=== PATIENT | male | born 2000 | race Caucasian/White ===

== ENCOUNTER 2025-07-07 06:41 | Emergency (ER) | payer SELFPAY ==
[2025-07-07 06:42] VITALS: BP 148/101; PULSE 119; RESP 18; TEMP 36.8; O2SAT 98; BMI 33.4
--- NOTE | 2025-07-07 06:56 | HMH.EDGENADL ---
Discharge Plan Disposition Patient Disposition: Home, Self-Care Condition: Good Prescriptions Prescriptions: New ondansetron 4 mg tablet,disintegrating 4 mg PO DAILY 5 Days Qty: 15 0RF amoxicillin-pot clavulanate [Augmentin] 500-125 mg tablet 1 tab PO Q8H 5 Days Qty: 15 0RF oxycodone 5 mg tablet 5 mg PO DAILY PRN (Reason: pain) Qty: 12 0RF Referrals Follow up/Referrals: Irving Chow II, MD [Staff Physician, Gastroenterology] - 08/14/25 10:00 am ProviderGurwinder MD [Primary Care Provider, Medical] - See instructions Activity Restrictions/Add. Instructions Additional Instructions/Restrictions: Please call and schedule appointment with gastroenterology. You will likely need a colonoscopy. Please take oxycodone at home as needed for pain. Please take Zofran at home as needed for nausea/vomiting. Please take Augmentin as instructed for 5 days. Return to the ER if symptoms persist or worsen. Clinical Impressions Clinical Impression: Diverticulitis Print Language Print Language: [place] Discharge ED Provider: Bhupinder Patterson JR General Adult HPI General Chief complaint: PAIN Stated complaint: severe abd pain Time Seen by Provider: 07/07/25 06:58 Mode of Arrival: Ambulatory Source of Information: Patient Limitations: No Limitations History of Present Illness HPI narrative: 25-year-old male patient with history of Tourette's syndrome, otherwise unremarkable history, no blood thinners, no allergies, no previous abdominal surgeries, presenting to the Emergency Department for evaluation of 1 week of abdominal pain, originally intermittent, now constant and located to the right lower quadrant. Patient denies fever, chills, chest pain, shortness of breath, vomiting, diarrhea, or constipation. No further complaints at this time. Patient does say walking is painful and driving over here was painful. Last bowel movement this AM. Does not want opioids for pain meds. Onset (ago): week(s) (1) Related Data Previous Rx's ?Medication ?Instructions ?Recorded amoxicillin 500 mg-potassium 1 tab PO Q8H 5 days #15 tabs 07/07/25 clavulanate 125 mg tablet (Augmentin) ondansetron 4 mg disintegrating 4 mg PO DAILY 5 days #15 tabs 07/07/25 tablet oxycodone 5 mg tablet 5 mg PO DAILY PRN pain #12 tabs 07/07/25 Allergies Allergy/AdvReac Type Severity Reaction Status Date / Time No Known Allergies Allergy Verified 07/07/25 06:58 [facility] Disclaimer: The information contained in this section may have been updated after the patient was seen, as this information can be updated by other users. Medical History (Updated 07/07/25 @ 09:04 by Bhupinder Patterson JR, DO) Michael de la Tourette syndrome Hypertension Social History Smoking Status: Current every day smoker alcohol intake: never current occupational status: employed Travel in the last 8 weeks?: Inside the [place] ROS Obtained: Yes All systems reviewed & no additional complaints except as documented and Yes Systems reviewed as appropriate & no additional complaints except as documented Constitutional Constitutional: Reports system reviewed and no additional complaints, except as documented Eyes Eyes: Reports system reviewed and no additional complaints, except as documented ENT Ears, Nose, Mouth, and Throat: Reports system reviewed and no additional complaints, except as documented Cardiovascular Cardiovascular: Reports system reviewed and no additional complaints, except as documented Respiratory Respiratory: Reports system reviewed and no additional complaints, except as documented Gastrointestinal Gastrointestingal: Reports abdominal pain; Denies constipation or diarrhea Genitourinary Male Genitourinary: Reports system reviewed and no additional complaints, except as documented Musculoskeletal Musculoskeletal: Reports system reviewed and no additional complaints, except as documented Integumentary/Breasts Skin/Breast: Reports system reviewed and no additional complaints, except as documented Neurologic Neurologic: Reports system reviewed and no additional complaints, except as documented Physical Exam General General appearance: alert and in no apparent distress Head Head exam: atraumatic and normocephalic Eye Eye exam: Present normal appearance ENT ENT exam: Present normal exam Neck Neck exam: Present normal inspection Chest Chest inspection: Present normal inspection Respiratory Respiratory exam: Present normal lung sounds bilaterally Cardiovascular Cardiovascular exam: Present regular rate Abdominal Exam Abdominal exam: Present tenderness (Tenderness palpation to right lower quadrant) Extremities Exam Extremities exam: Present normal inspection Back Exam Back exam: Present normal inspection Neurological Exam Neurological exam: Present alert Skin Skin exam: Present warm and dry Medical Decision Making Medical Records Screening: Per USPSTF and CDC recommendations, given the prevalence of disease in our region, it is our hospital?s policy to screen for HIV and viral Hepatitis for all patients aged 18 and over and those with ongoing risk factors. Everardo Inquiry Pt receiving controlled substance: No Vital Signs: 07/07/25 06:42 07/07/25 07:30 07/07/25 08:00 Temperature 98.2 F Temperature Source Oral Pulse Rate 89 82 Pulse Rate [Left Radial] 119 H Respiratory Rate 18 16 Blood Pressure 149/89 H 142/91 H Blood Pressure [Right Arm] 148/101 H Blood Pressure Mean 101 106 Blood Pressure Mean [Right Arm] 116 Blood Pressure Source [Right Arm] Automatic Cuff Blood Pressure Position [Right Arm] Supine 02 Sat by Pulse Oximetry 98 96 98 Oxygen Delivery Method Room Air Room Air Lab Data Lab Results 07/07/25 06:55: WBC 16.6 H, RBC 5.49, Hgb 17.0, Hct 48.5, MCV 88.3, MCH 31.0, MCHC 35.1, RDW 13.2, Plt Count 291, MPV 10.4, Neut % (Auto) 72.8, Lymph % (Auto) 15.3, Beadle % (Auto) 9.2, Eos % (Auto) 1.7, Baso % (Auto) 0.4, Neut # (Auto) 12.1 H, Lymph # (Auto) 2.5, Beadle # (Auto) 1.5 H, Eos # (Auto) 0.3, Baso # (Auto) 0.1, Sodium 140, Potassium 4.1, Chloride 98, Carbon Dioxide 26, Anion Gap 20.1 H, BUN 16, Creatinine 1.10, Estimated Creat Clear 144, Estimated GFR 81, Est GFR ( Amer) 98, Glucose 96, Lactate 1.2, Calcium 9.5, Total Bilirubin 0.8, AST 29, ALT 33, Alkaline Phosphatase 80, Total Protein 8.7 H, Albumin 4.7, Globulin 4.0 H, Albumin/Globulin Ratio 1.2, Lipase 40, HCV Ab MOSES w/Rflx PCR Qn Negative, HIV Ag/Ab Combo Qual Negative 07/07/25 08:13: Urine Color Yellow, Urine Appearance Clear, Urine pH 6.5, Ur Specific [employer] <= 1.005, Urine Protein Negative, Urine Glucose (UA) Negative, Urine Ketones Negative, Urine Blood Negative, Urine Nitrate Negative, Urine Bilirubin Negative, Urine Urobilinogen 0.2, Ur Leukocyte Esterase Negative 07/07/25 06:55 07/07/25 06:55 Orders (Tests/Meds): ED MEDICATIONS Generic Name Dose Route Start Last Admin Trade Name Lisha PRN Reason Stop Dose Admin Sodium Chloride 10 ml 07/07/25 07:50 07/07/25 07:51 Sodium Chloride 0.9% 10ml Syr (Rad Only) IV 08/06/25 07:49 10 ml NEEDED PRN Administration Maintain IV Site Discontinued Medications Generic Name Dose Route Start Last Admin Trade Name Lisha PRN Reason Stop Dose Admin Lactated Ringer's 1,000 mls @ 999 mls/hr 07/07/25 06:59 07/07/25 08:17 Lactated Ringer's 1000 Ml Bag IV 07/07/25 07:59 Infused .Q1H1M ONE Infusion Iopamidol 75 ml 07/07/25 07:50 07/07/25 07:51 Iopamidol-370 (76%);100ml Bottle IV 07/07/25 07:51 75 ml ONCE ONE Administration Ketorolac Tromethamine 15 mg 07/07/25 06:59 07/07/25 07:16 Ketorolac 15mg/Ml Vial IV 07/07/25 07:00 15 mg ONCE ONE Administration ORDERS Category Date Time Status CT abdomen pelvis w con Stat Cat Scan 07/07/25 06:59 Completed Complete Blood Count Auto Diff Stat Lab 07/07/25 06:55 Completed Comprehensive Metabolic Panel Stat Lab 07/07/25 06:55 Completed HIV Combo Stat Lab 07/07/25 06:55 Completed Hepatitis C Ab Qual. W/ RFX Stat Lab 07/07/25 06:55 Completed Lactic Acid Stat Lab 07/07/25 06:55 Completed Lipase Stat Lab 07/07/25 06:55 Completed Urinalysis and Microscopic Stat Lab 07/07/25 08:13 Results Medical Decision Narrative: 25-year-old male with unremarkable past medical history presenting with right lower quad abdominal pain. Patient is tender to right lower quadrant exam. We obtain CT imaging to rule out appendicitis. Labs reviewed and independently interpreted, significant for white count of 16 with neutrophil predominance. Anion gap of 20. Giving IV fluids. Lactate within normal limits. Lipase within normal limits. CT abdomen results IMPRESSION: Focal inflammatory process involving the cecum and to a lesser extent the terminal ileum with a normal appendix. Findings could be related to focal colitis, right sided diverticulitis or less likely, typhlitis (immunocompromised patient). Etiology less likely typhlitis as patient is not immunocompromised. Patient is also not neutropenic. Patient reports symptomatic improvements. Etiology likely related to infectious colitis or diverticulitis. With elevated white count and initial pain, we will treat for diverticulitis. No current diarrhea or vomiting. Less likely infectious colitis. We will give Augmentin. Patient is not having diarrhea and has elevated white count therefore believe Augmentin is warranted. Will give Zofran and oxycodone as well as GI follow-up. Clear for discharge this time. Return precaution given. Critical Care Critical Care Time Critical Care Time: No
--- NOTE | 2025-07-07 06:59 | CT_ITS ---
FINAL REPORT TECHNIQUE: Thin section axial images are obtained through the abdomen and pelvis after intravenous contrast. Reconstruction images were obtained from the axial data. Exam was performed using dose reduction techniques. CLINICAL HISTORY: RLQ abd pain COMPARISON: None. FINDINGS: LUNG BASES: Lung bases are clear. Heart size is normal. LIVER: Homogeneous. No focal lesion. GALLBLADDER/BILIARY SYSTEM: Gallbladder is present. No gallstones. No biliary dilatation. SPLEEN: Unremarkable. PANCREAS: Unremarkable. ADRENALS: Unremarkable. KIDNEYS/URETERS/BLADDER: There is a nonobstructing right renal stone. There is no hydronephrosis. Unremarkable urinary bladder. GI TRACT: No small bowel obstruction or dilatation. Normal appendix. There is focal wall thickening involving the cecum and to a lesser extent, the terminal ileum with surrounding inflammation and small adjacent lymph nodes. Favor focal colitis or acute diverticulitis. PELVIC ORGANS: Unremarkable for age. LYMPH NODES/RETROPERITONEUM/MESENTERY: Otherwise, no lymphadenopathy. No abdominal aortic aneurysm. ABDOMINAL WALL: The abdominal wall is intact. FREE FLUID: Small amount of pelvic free fluid. BONES: Deformity of the left ischial tuberosity, favor chronic. No acute osseous abnormality. IMPRESSION: Focal inflammatory process involving the cecum and to a lesser extent the terminal ileum with a normal appendix. Findings could be related to focal colitis, right sided diverticulitis or less likely, typhlitis (immunocompromised patient). Reviewed, Interpreted and Dictated by Rea Wiseman MD Transcribed by Karyn Fletcher Authenticated and [facility]
[2025-07-07] MEDS: LACTATED RINGERS 1000ML 1,000 ML 999 ML IV (07:16)
[2025-07-07] MEDS: KETOROLAC 15MG/ML VIAL 15 MG IV (07:16)
[2025-07-07 07:20] LABS: Hematocrit 48.5 % (42.0-52.0); Hemoglobin 17.0 g/dL (14.1-18.0); Immature Granulocytes % 0.6 %; Mean Corpuscular HGB Conc 35.1 g/dL (31.8-35.4); Mean Corpuscular Hemoglobin 31.0 pg (27.0-31.2); Mean Corpuscular Volume 88.3 fl (80-94); Nucleated Red Blood Cells % 0 %; Platelet Count 291 K/mm3 (142-424); Red Blood Count 5.49 M/mm3 (4.60-6.20); Red Cell Distribution Width-SD 42.5 fL; White Blood Count 16.6 K/mm3 (4.8-10.8)
[2025-07-07 07:30] VITALS: BP 149/89; PULSE 89; O2SAT 96
--- OUTSIDE RECORDS SUMMARY | 2025-07-07 07:30 | XMS_ITS | Encounter Summary ---
Author Organization [facility] Address 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 He was treated with Keflex about one week ago. Mother states is much better. He still has some school anxiety but otherwise he is not showing very much obsessive compulsive problems at all. OBJECTIVE: GENERAL: This is a well-developed, well-nourished male in no acute distress. Patient is alert and active. SKIN: No rashes. HEENT: Nose is clear. Tympanic membranes are benign. Mouth and pharynx are benign. NECK: Supple. HEART: Regular rate without murmur. LUNGS: Clear. ABDOMEN: Benign. ASSESSMENT: PANDAS syndrome improved. PLAN: 1. Finish Keflex and then Pen-Vee K 250 mg/5 mL one teaspoon b.i.d. 2. Return to clinic in one month. /Jae Luna M.D. /liliana documented in this encounter Plan of Treatment Not on file documented as of this encounter Visit Diagnoses Not on filedocumented in this encounter Care Teams Food Specialist Relationship Specialty Start Date End Date Ian Krishnan DO [address] [facility] [place] [address] PCP - General Family Medicine 06/07/21 documented as of this encounter
--- OUTSIDE RECORDS SUMMARY | 2025-07-07 07:30 | XMS_ITS | Encounter Summary ---
Author Organization [facility] Address [address] [place] [address] [place] [address] Care Team Providers Care Slitter Service And Setter Name Role Phone Ian Krishnan DO Primary Care Provi kal Encounter Details Date Type Department Care Team (Late st Contact Info) Description 09/11/2009 Historical Encounter Immediate Care [address] [place] [address] [place], [phone] Ivy oRdney MD [address] [place] [address] Immediate Care [place], [phone] Social History Tobacco Use Types Packs/Day Years Used Date Smoking Tobacco: Never Assessed Sex and Gender Information Value Date Recorded Sex Assigned at Not on file 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 May have had some fever last night. Cough is dry and hacky. No chronic lung problems, asthma, or wheezing. No shortness of breath. Medications are Zyrtec and DayQuil. Allergies none. OBJECTIVE: Temp 98. Weight 134 lbs. Well-developed, well-nourished, white male in no acute distress. Ears -- fluid behind the tympanic membranes. Nose is congested. Pharynx is injected. No exudate. Neck is supple without masses or lymphadenopathy. Full range of motion. Heart regular rate without murmur. Lungs have a few rhonchi in the bases. No rales or wheezes. No respiratory distress. DIAGNOSIS: 1. Bronchitis. 2. URI. TREATMENT: Biaxin 500 mg b.i.d. for 10 days with food. Nasacort AQ 2 puffs once a day in each nostril. Followup p.r.n. Ivy Rodney MD TR: LCB/MS Conf #: [id number] Dictation ID: [id number] cc: (Signed in IC-Chart by Ivy Rodney MD on 2009-09-11 13:25:08) documented in this encounter Plan of Treatment Not on file documented as of this encounter Visit Diagnoses Not on filedocumented in this encounter Care Teams Slitter Service And Setter Relationship Specialty Start Date End Date Ian Krishnan DO [address] [facility] [place] [address] PCP - General Family Medicine 06/07/21 documented as of this encounter
--- OUTSIDE RECORDS SUMMARY | 2025-07-07 07:30 | XMS_ITS | Encounter Summary ---
Author Organization [facility] Address 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 SUBJECTIVE: Art comes in for a [age] year old checkup. He is doing well with good activity and appetite. In fact mom states his only pleasure in life is eating. Developmentally he is normal, unfortunately he continues to have problems with obsessive compulsive disorder. He has been seen here before and felt to probably have PANDAS. He was seen last on 12/05/03. He had an exacerbation of his obsessive compulsive disorder tendencies by a strep infection that responded beautifully to Keflex but mom says he has continued to have significant obsessive compulsive disorder symptoms. OBJECTIVE: VITAL SIGNS: Wt. is 66 lbs; HT: 3'10; BP is 92/60 GENERAL: This is a well-developed, well-nourished male in no acute distress. Patient is alert and active. SKIN: No significant rashes. HEENT: Pupils are equal, round and reactive to light. Tympanic membranes are benign. Nose is clear. Mouth and pharynx are benign. NECK: Supple. HEART: Regular rate without murmur. Pulses are equal. LUNGS: Clear. ABDOMEN: Soft, without hepatosplenomegaly, masses or tenderness. : Not examined. EXTREMITIES: No clubbing, cyanosis, or edema. NEUROLOGICAL: No focal deficits are noted. ASSESSMENT: 1. [age] year old with normal growth, development and physical examination. 2. Significant obsessive compulsive disorder. PLAN: 1. Will once again ask Dr. Bedolla to see since this was requested before by me but mom felt that it was unnecessary after the response to Keflex. 2. Return to clinic p.rsabina. /Jae Luna M.D. /liliana documented in this encounter Plan of Treatment Not on file documented as of this encounter Visit Diagnoses Not on filedocumented in this encounter Care Teams Butcher Or Smallgoods Maker Relationship Specialty Start Date End Date Ian Krishnan DO [address] [facility] [place], [phone] PCP - General Family Medicine 06/07/21 documented as of this encounter
--- OUTSIDE RECORDS SUMMARY | 2025-07-07 07:30 | XMS_ITS | Encounter Summary ---
Author Organization [facility] Address 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 SUBJECTIVE: Art comes in at [age] years of age with his mother with an extremely interesting history. He developed sore throat three weeks ago right after a sibling had been cultured positive for strep. He was seen at [facility]. No culture was done. He was presumed to have strep because of his siblings positive throat culture. He was initially treated with Amoxicillin but was not better in three days and returned and received an injection of Bicillin. Mother states that after a few days he was fine but about two weeks ago she noticed he began to have severe anxiety, won't play with others, has a lot of trouble being out of the mother's sight. He is not eating. He is afraid of the dark now, afraid of his hands being dirty, has numerous obsessive compulsive traits. OBJECTIVE: VITAL SIGNS: WT. is 44 GENERAL: This is a well-developed, well-nourished male in no acute distress. Patient is alert and active. SKIN: No rashes. HEENT: Nose is clear. Tympanic membranes are benign. Mouth and pharynx are benign. NECK: Supple. HEART: Regular rate without murmur. LUNGS: Clear. ABDOMEN: Benign. ASSESSMENT: PANDAS Syndrome. PLAN: 1. Quick Strep is negative. 2. Keflex 500 mg b.i.d. 3. Will talk with the psychiatrist about starting Prozac but none are available today because it being weekend. 4. Will also talk to infectious disease about prophylactic antibiotics. 5. He is to return to clinic in six days for a follow up. /Jae Luna M.D. /liliana documented in this encounter Plan of Treatment Not on file documented as of this encounter Visit Diagnoses Not on filedocumented in this encounter Care Teams Cable Splicer Relationship Specialty Start Date End Date Ian Krishnan DO [address] [facility] [address] PCP - General Family Medicine 06/07/21 documented as of this encounter
--- OUTSIDE RECORDS SUMMARY | 2025-07-07 07:30 | XMS_ITS | Encounter Summary ---
Author Organization [facility] Address 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
--- OUTSIDE RECORDS SUMMARY | 2025-07-07 07:30 | XMS_ITS | Encounter Summary ---
Author Organization [facility] Address [address] [place] [address] Care Team Providers Care Leather Sprayer Name Role Phone Ian Krishnan DO Primary Care Provi kal Encounter Details Date Type Department Care Team (Late st Contact Info) Description 09/28/2010 Historical Encounter HISTORICAL Provider, MD Indra 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
--- OUTSIDE RECORDS SUMMARY | 2025-07-07 07:30 | XMS_ITS | Encounter Summary ---
Author Organization [facility] Address 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 Mother is concerned because the child has been experiencing a good bit of weight gain. She is concerned that he is overweight for his age and just wants a good physical so that she can be sure that there is nothing physically that is causing him to retain this weight. We did talk about this at length. She is an RN and she is aware of normal childhood development and growth spurts. She wants to enroll him in physical exercise program and just wants to be sure that he is well before she does that. PAST MEDICAL HISTORY: The patient has no known health problems. ALLERGIES: No known drug allergies. MEDICATIONS: Not currently taking medications. PAST SURGICAL HISTORY: No previous surgery history. He was born full term at 7 lbs., 6 oz. OBJECTIVE: GENERAL: Alert, cooperative, 6-year-old male. VITALS: Weight 97 lbs., 4 oz. Temperature 98.6. Pulse is 92. ENT: TMs clear and intact. Nares patent. Pharynx negative. Mucous membranes moist. NECK: Supple. No rigidity, masses or thyroid enlargement. CV: Heart rate and rhythm regular. RESP: Clear bilaterally. No wheezes. Respirations easy. GI: Abdomen soft, nontender, nondistended. No masses or organomegaly. Bowel sounds active in all four quadrants. MS: Full ROM of extremities. Muscle strength equal. No pedal edema. SKIN: Warm and dry. No rashes or cyanosis. DIAGNOSTICS: CBC is essentially within normal limits. CMP and TSH sent to reference lab for evaluation as well. ASSESSMENT: 1. Weight gain. PLAN: Discussed with patient's mother on ways to increase activity and making smart food choices more than dieting and I believe it may be franz to go ahead and enter him in an exercise type activity. They will follow back up with me here within the next week after we have obtained these other lab studies and make any changes based on that. Patient's mother verbalized understanding. Dejah Smith NP TR: FRANCISCO JAVIER Conf #: [id number] Dictation ID: [id number] cc: (Signed in IC-Chart by LEONCIO Adams on 2007-03-01 08:17:54) documented in this encounter Plan of Treatment Not on file documented as of this encounter Visit Diagnoses Not on filedocumented in this encounter Care Teams Manager Talent Relationship Specialty Start Date End Date Ian Krishnan DO [address] [facility] Family [facility] [place], [phone] PCP - General Family Medicine 06/07/21 documented as of this encounter
--- OUTSIDE RECORDS SUMMARY | 2025-07-07 07:30 | XMS_ITS | Encounter Summary ---
Author Organization [facility] Address 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 It shows that Dr. Luna saw him in 2003 with a diagnosis of PANDAS and then worsening of his OCD and anxiety later in 2004. Mom says she really thought that they could deal with it themselves and he seemed to do better initially although he did have exacerbations with sore throats. However, now he just seems to have anxiety and obsessive compulsive symptoms at baseline. Apparently his school performance is suffering. He is at [employer] and is in fifth grade. He previously was an A/B student and now is a D student. Mom says he just cannot complete his work because he is so fixated on his compulsive symptoms and obsessive symptoms. He lifts his eyebrows. He blinks his eyes. Mom says his mouth jerks. He does make some grunting noises from time to time. He turns his head and grabs his stomach. Art says that it does bother him also and he is unable to concentrate although the friends at school do not seem to be bothering him about it. He had been offered a referral to Dr. Lolis Bedolla but the family had declined that and now mom would like some help with this. He continues to sleep well at nighttime but his activities have suffered. He quit basketball and has quit baseball also and mom is worried about him. He seems to be depressed a lot. Mom was adopted and does not know much about her family medical history but paternal grandmother does have a history of depression. She really doesn't complain of any hyperactive symptoms but he certainly does have difficulty concentrating and finishing his work and he worries constantly mom says of someone breaking into their house and killing them all. He is not on any medicines currently. No known drug allergies. He has had no problems with enuresis or encopresis. Still eats fairly well. No fevers presently or persistent upper respiratory infection symptoms or cough. PHYSICAL EXAM: Weight 128 pounds. Height is 5 feet 1/2 inches. BMI 97th percentile. Blood pressure 108/76. General: He is well-developed, overweight male in no acute distress. He is awake, alert, and appropriate although with mildly flat affect. Intermittently, his eyebrows do raise in unison. His eyes may dart to the side. No nystagmus type movements. Shrugs his shoulder from time to time. Mom says he is trying to hold in his tics. HEENT: Normocephalic, atraumatic. Eyes are clear. Pupils are equal, round and reactive to light. Extraocular movements are intact. TM's are within normal limits. No nasal discharge. Oropharynx is benign with moist mucous membranes. Neck: Shotty cervical lymphadenopathy that is freely movable bilaterally. CV: Normal sinus rhythm without murmur. Good bilateral pulses and peripheral perfusion. Lungs: Clear to auscultation bilaterally with good air movement. No increased work of breathing. cteric. Abdomen: Soft and nontender, nondistended. There is no hepatosplenomegaly or masses. Skin: Clear with no rashes. Neuro: Cranial nerves II-XII intact. IMPRESSION: 1. Tic disorder. 2. History of PANDAS. PLAN: 1. I certainly agree that he needs a referral to pediatric psychiatry. Mom would like to try someone besides Dr. Bedolla at this point so we did discuss Inocencio Draper and she says that she wants to call around and find someone who will take their insurance. We offered to do that for her but she will call us when she needs a referral. She even mentioned going to [place] [facility]. We will be glad to help in any way that we can. Roxane Padilla MD TR: ARCHANA Conf #: [id number] Dictation ID: [id number] cc: (Signed in IC-Chart by Roxane Padilla MD on 2010-10-01 12:01:55) documented in this encounter Plan of Treatment Not on file documented as of this encounter Visit Diagnoses Not on filedocumented in this encounter Care Teams Clinical Recruiter Relationship Specialty Start Date End Date Ian Krishnan DO [facility] [place] [address] PCP - General Family Medicine 06/07/21 documented as of this encounter
--- OUTSIDE RECORDS SUMMARY | 2025-07-07 07:30 | XMS_ITS | Encounter Summary ---
Author Organization [facility] Address 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 Keflex was started six days ago and mother states he got much better and did not need an appointment with Dr. Bedolla for his significant obsessive compulsive disorder. The mother states minimal separation anxiety but is really doing extremely. She is not only pleased but very amazed. OBJECTIVE: GENERAL: This is a well-developed, well-nourished female in no acute distress. Patient is alert and active. SKIN: No rashes. HEENT: Tonsils are still 2+ and slightly red. Nose is clear. Tympanic membranes are benign. Mouth and pharynx are benign. NECK: Supple. HEART: Regular rate without murmur. LUNGS: Clear. ABDOMEN: Benign. ASSESSMENT: 1. Strep tonsillitis. 2. PANDAS. PLAN: 1. Finish Keflex 10 day course. 2. Penicillin V 250 mg/5 mL one teaspoon p.o. b.i.d. for one month for prophylaxis for Group A beta hemolytic strep. Return to clinic in one month or sooner p.r.n. recurrence of obsessive compulsive disorder symptoms. /Jae Luna M.D. /liliana documented in this encounter Plan of Treatment Not on file documented as of this encounter Visit Diagnoses Not on filedocumented in this encounter Care Teams Industrial Maintenance Millwright Relationship Specialty Start Date End Date Ian Krishnan DO [address] [facility] [place] [address] PCP - General Family Medicine 06/07/21 documented as of this encounter
--- OUTSIDE RECORDS SUMMARY | 2025-07-07 07:30 | XMS_ITS | Encounter Summary ---
Author Organization [facility] Address 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
--- OUTSIDE RECORDS SUMMARY | 2025-07-07 07:30 | XMS_ITS | Encounter Summary ---
Author Organization [facility] Address 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
--- OUTSIDE RECORDS SUMMARY | 2025-07-07 07:30 | XMS_ITS | Clinical Summary ---
Author Organization [facility] Address [address] [place] [address] Care Team Providers Care Head Start Director Name Role Phone No, Primary Doctor Primary Care Provider Unavail able Social History Tobacco Use Types Packs/Day Years Used Date Smoking Tobacco: Never Smokeless Tobacco: Never Tobacco Cessation:Counseling Given: Not Answered Sex and Gender Information Value Date Recorded Sex Assigned at Not on file Legal Sex Male 8:10 AM CDT Gender Identity Not on file Sexual Orientation Not on file Last Filed Vital Signs Vital Sign Reading Time Taken Comments Blood Pressure 126/74 11/28/2023 8:46 AM CDT Pulse 85 11/28/2023 8:46 AM CDT Temperature 37.1 C (98.7 F) 11/28/2023 8:46 AM CDT Respiratory Rate 18 11/28/2023 8:46 AM CDT Oxygen Saturation 98% 11/28/2023 8:46 AM CDT Inhaled Oxygen Concentration - - Weight 95.3 kg (210 lb) 11/28/2023 8:46 AM CDT Height 172.7 cm (5' 8 ) 11/28/2023 8:46 AM CDT Body Mass Index 31.93 11/28/2023 8:46 AM CDT Plan of Treatment Health Maintenance Due Date Last Done Comments HIV Screening 2014 HPV Vaccines (1 - Male 3-dose series) 2014 COVID-19 Vaccine ( season) 2025 Influenza Vaccine (#1) 2025 , 05/27/2018, 05/10/2014, Additional history exists TETANUS VACCINE 12/07/2029 12/08/2019 RSV Vaccine (Age 50+ and patients) (1 - 1-dose 75+ series) 2074 Hepatitis C Screening Completed 07/19/2021 Lipid Panel Completed 09/19/2022 Pneumococcal Vaccines (Age 0-49) Aged Out No longer eligible based on patient's age to complete this topic Care Teams Head Start Director Relationship Specialty Start Date End Date No, Primary Doctor PCP - General 11/28/23
--- OUTSIDE RECORDS SUMMARY | 2025-07-07 07:31 | XMS_ITS | Encounter Summary ---
Author Organization [facility] Address [address] [place] [address] Care Team Providers Care Supply Chain Development Manager Name Role Phone Ian Krishnan DO Primary Care Provi kal Encounter Details Date Type Department Care Team (Latest Contact Info) Description 01/06/2014 Scanned Document EXTERNAL Scan, Clinical [address] [facility] [place] [address] Social History Tobacco Use Types Packs/Day Years Used Date Smoking Tobacco: Never Smokeless Tobacco: Never Alcohol Use Standard Drinks/Week Comments No 0 (1 standard drink = 0.6 oz pur e alcohol) Sex and Gender Information Value Date Recorded Sex Assigned at Not on file 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
--- OUTSIDE RECORDS SUMMARY | 2025-07-07 07:31 | XMS_ITS | Encounter Summary ---
Author Organization [facility] Address [address] [place], [address] Care Team Providers Care Poultice Machine Operator Name Role Phone Ian Krishnan DO Primary Care Provi kal Encounter Details Date Type Department Care Team (Late st Contact Info) Description 05/08/2003 Historical Encounter Pediatric Clinic [address] [place] [address], [phone] Elvi Yi MD [address] [place] [address] Pediatric [facility], [address] Social History Tobacco Use Types Packs/Day Years Used Date Smoking Tobacco: Never Assessed Sex and Gender Information Value Date Recorded Sex Assigned at Not on file Legal Sex Male 6:[address] OPERATIONS CLERK Gender Identity Not on file Sexual Orientation Not on file documented as of this encounter Miscellaneous Notes * Office Visit - Elvi Yi MD - 05/08/2003 1:06 PM CDT CONTINUATION RECORD 05/05/2003 [place] [id number] Elvi Yi M.D. SUBJECTIVE: Art is a 3-year-old who presents for the first time to the Pediatric Clinic for a checkup. They saw Dr. Garay a few weeks ago for allergy problems. He put him on some Zyrtec and Nasonex and Mom thinks that is helping a little bit with the allergy symptoms. He does have large tonsils and adenoids but Dr. Garay thinks they are within normal limits for his age. He walks and runs, is well-coordinated. Knows his letters and numbers. His development is quite good. He eats a good diet. Drinks plenty of milk. Mom has no other concerns or complaints. PAST MEDICAL HISTORY: He was a 7 lb., 6 oz. product of a term delivery at [facility]. OBJECTIVE: VITAL SIGNS: Wt. is 49 lbs; HT: 42 inches; blood pressure 92/70. GENERAL: This is a well-developed, well-nourished male in no acute distress. SKIN: No rashes. HEENT: Pupils are equal, round and reactive to light. Tympanic membranes are quiroz and shiny. Nares are clear. Oropharynx is pink and moist. NECK: Supple with full range of motion. HEART: Regular rate and rhythm with no murmur, gallop or rub. LUNGS: Clear to auscultation bilaterally. ABDOMEN: Soft, non-tender, non-distended, with no hepatosplenomegaly. : Normal male. Testes descended bilaterally. EXTREMITIES: No clubbing, cyanosis, or edema. NEUROLOGICAL: No focal deficits are noted. SPINE: Straight. ASSESSMENT: 1. Well child with normal growth and development 2. Allergic rhinitis PLAN: 1. Continue the Zyrtec and Nasonex. 2. Since he has quite a bit of trouble with allergies I did recommend that he get a flu shot next month. 3. Recheck yearly or sooner as needed. /Elvi Yi M.D. /chaparrita documented in this encounter Plan of Treatment Not on file documented as of this encounter Visit Diagnoses Not on filedocumented in this encounter Care Teams Poultice Machine Operator Relationship Specialty Start Date End Date Ian Krishnan DO [facility] [place] [address] PCP - General Family Medicine 06/07/21 documented as of this encounter
--- OUTSIDE RECORDS SUMMARY | 2025-07-07 07:31 | XMS_ITS | Encounter Summary ---
Author Organization [facility] Address [address] [place] [address] Care Team Providers Care Coin Counter And Wrapper Name Role Phone Ian Krishnan DO Primary Care Provi kal Encounter Details Date Type Department Care Team (Latest Contact Info) Description 08/25/2014 Scanned Document EXTERNAL Scan, Clinical [address] [facility] [place] [address] Social History Tobacco Use Types Packs/Day Years Used Date Smoking Tobacco: Never Smokeless Tobacco: Never Alcohol Use Standard Drinks/Week Comments No 0 (1 standard drink = 0.6 oz pur e alcohol) Sex and Gender Information Value Date Recorded Sex Assigned at Not on file 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
--- OUTSIDE RECORDS SUMMARY | 2025-07-07 07:31 | XMS_ITS | Encounter Summary ---
Author Organization [facility] Address [address] [place] [address] Care Team Providers Care Occupational Health Physician Name Role Phone Ian Krishnan DO Primary Care Provi kal Encounter Details Date Type Department Care Team (Latest Contact Info) Description 09/17/2015 Scanned Document EXTERNAL Scan, Clinical [address] [facility] [place] [address] Social History Tobacco Use Types Packs/Day Years Used Date Smoking Tobacco: Never Smokeless Tobacco: Never Alcohol Use Standard Drinks/Week Comments No 0 (1 standard drink = 0.6 oz pur e alcohol) Sex and Gender Information Value Date Recorded Sex Assigned at Not on file 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
--- OUTSIDE RECORDS SUMMARY | 2025-07-07 07:31 | XMS_ITS | Encounter Summary ---
Author Organization [facility] Address [address] [place] [address] [place], [address] Care Team Providers Care Slitter Creaser Slotter Operator Name Role Phone Ian Krishnan DO Primary Care Provi kal Encounter Details Date Type Department Care Team (Late st Contact Info) Description 10/26/2023 Telephone Psychiatry - [place] 1 [facility] [address] [place] [address] Gabi Moore, PMHNP 1 [facility] [address] [facility] [address] Social History Tobacco Use Types Packs/Day Years Used Date Smoking Tobacco: Every Day Cigarettes 0.3 5 Smokeless Tobacco: Former Snuff Alcohol Use Standard Drinks/Week Comments Yes 0 (1 standard drink = 0.6 oz pur e alcohol) occasionally PHQ-2 Answer Date Recorded PHQ-2 Total Score 0 01/13/2021 Sex and Gender Information Value Date Recorded Sex Assigned at Not on file 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 Answer Date of Assessment Author No 05/13/2016 1:43 PM CDT Me jero Thomas, JANE * *Walks in Home Answer Date of Assessment Author No 05/13/2016 1:43 PM CDT Me jero Thomas RN * *Bathing Answer Date of Assessment Author No 05/13/2016 1:43 PM CDT Me jero Thomas, JANE * *Due to conditions difficulty w/ independent errands,shopping? Answer Date of Assessment Author No 05/13/2016 1:43 PM CDT Me jero Thomas RN documented as of this encounter Mental Status * *Due to conditions have difficulty w/decisions Answer Entry Date Author No 05/13/2016 1:43 PM CDT documented in this encounter Miscellaneous Notes * Telephone Encounter - Gabi Moore PMHNP - 10/26/2023 2:13 PM CDT Requested Prescriptions Signed Prescriptions Disp Refills ARIPiprazole (ABILIFY) 5 MG tablet 30 tablet 2 Sig: Take 1 tablet (5 mg total) by mouth daily. Authorizing Provider: GABI MOORE fluvoxaMINE (LUVOX) 100 MG tablet 60 tablet 2 Sig: Take 1 tablet (100 mg total) by mouth 2 (two) times daily. Authorizing Provider: GABI MOORE busPIRone (BUSPAR) 15 MG tablet 60 tablet 2 Sig: Take 1 tablet (15 mg total) by mouth 2 (two) times daily. Authorizing Provider: GABI MOORE Viloxazine HCl ER 200 MG CP24 60 capsule 2 Sig: Take 2 capsules by mouth daily. Authorizing Provider: GABI MOORE * Telephone Encounter - Adrienne Savage - 10/26/2023 2:06 PM CDT Patient called regarding his appointment he missed this morning, stated he had a family emergency. He rescheduled the appointment for 11/28/23 at 4:00, wanted to know if he can get his medication refilled to [facility] on [address] documented in this encounter Plan of Treatment Not on file documented as of this encounter Visit Diagnoses Not on filedocumented in this encounter Care Teams Slitter Creaser Slotter Operator Relationship Specialty Start Date End Date Ian Krishnan DO [address] [facility] [place] [address] PCP - General Family Medicine 06/07/21 documented as of this encounter
--- OUTSIDE RECORDS SUMMARY | 2025-07-07 07:31 | XMS_ITS | Encounter Summary ---
Author Organization [facility] Address [address] [place], [address] Care Team Providers Care Hydraulic Design Engineer Name Role Phone Ian Krishnan DO Primary Care Provi kal Reason for Referral * Diagnostic Procedure (Routine) - Closed Specialty Diagnoses / Procedures Referred By Luis ross Referred To Contact Diagnoses Obsessive-compulsive disorders Procedures EKG 12 lead Arnold Lozoya MD [address] [facility] [address] Phone: tel: fax: Referral ID Status Reason Start Date Expiration Date Visits Re quested Visits Authorized [id number] Closed 10/10/2014 04/08/2015 1 1 [employer] Encounter Details Date Type Department Care Team (Late st Contact Info) Description 10/10/2014 Orders Only [facility] EKG [address] [place], [address] Arnold Lozoya MD [address] [facility] [place], [address] Obsessive-compulsive disorders (Primary Dx) Social History Tobacco Use Types Packs/Day Years Used Date Smoking Tobacco: Never Smokeless Tobacco: Never Alcohol Use Standard Drinks/Week Comments No 0 (1 standard drink = 0.6 oz pur e alcohol) Sex and Gender Information Value Date Recorded Sex Assigned at Not on file 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 Gender Identity Not on file Sexual Orientation Not on file documented as of this encounter Plan of Treatment Not on file documented as of this encounter Results * EKG 12 lead (10/10/2014 7:51 AM MANAGER MARKET) Other (qualifier value) 10/10/2014 7:51 AM MANAGER MARKET Arnold Lozoya MD ECG ORDERABLES Final Result documented in this encounter Visit Diagnoses Diagnosis Obsessive-compulsive disorders- Primary documented in this encounter Care Teams Hydraulic Design Engineer Relationship Specialty Start Date End Date Ian Krishnan DO [address] [place] [address] [place] [address] PCP - General Family Medicine 06/07/21 documented as of this encounter
--- OUTSIDE RECORDS SUMMARY | 2025-07-07 07:31 | XMS_ITS | Encounter Summary ---
Author Organization [facility] Address 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 CHIEF COMPLAINT: Allergies and obstructive snoring and hoarseness. HISTORY OF PRESENT ILLNESS: The patient comes to the office with allergies, obstructive snoring, frequent hoarseness in the morning, dark circles under the eyes, constant throat clearing, sniffs a lot, the patient has huge tonsils but without evidence of significant tonsillitis. He has been off and on different antihistamines, presently taking Claritin. The family wants my opinion regarding treatment options available. PAST MEDICAL HISTORY: As above. MEDICATIONS: Claritin. ALLERGIES: None. SOCIAL HISTORY: No one smokes in the home. He is in preschool. SURGICAL HISTORY: None. FAMILY HISTORY: Noncontributory. ENVIRONMENTAL EXPOSURES: No pets, no second hand smoke. REVIEW OF SYSTEMS: General: Problematic snoring as noted above. Eyes: Doesn't wear glasses, denies burning or itching. Nose: As above. Throat: As above. CV/Pul: No asthma or hypertension. GI: No reflux or hiatal hernia. : No bladder disorders or kidney disease. Neuro: No seizures or strokes, no dizziness or chronic headaches. Misc: No bleeding disorders, low blood count, no thyroid disease. PHYSICAL EXAMINATION: VS: Weight is 48 lbs. Pulse is 104. Respirations 36. Head: Atraumatic, normocephalic. The facial functions appear intact. Hearing seems to be normal in the office today. Ears: The TMs and middle ear cleft are clear, dry, and noninfected. Nose/Intranasal Vault: Hypertrophic inferior turbinates, dark circles under the eyes. Midline septum. No pus or polyps seen in the middle meatus. Oral Cavity/Oropharynx: Shows no disease in the floor of the mouth, base of the tongue, pharynx, nasopharynx, lips or dental areas. Tonsils are 3-4+ . Indirect exam: Deferred. Neck: Shows no evidence of mass or adenopathy, thyroid and salivary tissues do not appear enlarged. Neuro: Cranial nerves II-XII are intact. Lateral x-ray was performed, which shows moderate adenoidal hypertrophy. IMPRESSION: 1. Moderate adenotonsillar hypertrophy. The patient has obstructive complaints but the tonsils and adenoids at this time are not obviously obstructive. 2. He has got what appears to be some fairly significant allergies and is probably owing to the nasal airway obstruction and the forced mouth breathing. RECOMMENDATIONS: 1. Zyrtec and Nasonex. 2. Comprehensive allergy tests plus IgE. 3. Will call with the results and go from there. Gera Garay M.D. /naima documented in this encounter Plan of Treatment Not on file documented as of this encounter Visit Diagnoses Not on filedocumented in this encounter Care Teams Assistant Relationship Specialty Start Date End Date Ian Krishnan DO [address] [facility] [place] [address] PCP - General Family Medicine 06/07/21 documented as of this encounter
--- OUTSIDE RECORDS SUMMARY | 2025-07-07 07:31 | XMS_ITS | Encounter Summary ---
Author Organization [facility] Address 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 Gera Garay M.D./ Gera Garay MD documented in this encounter Plan of Treatment Not on file documented as of this encounter Visit Diagnoses Not on filedocumented in this encounter Care Teams Supervisor Painting Relationship Specialty Start Date End Date Ian Krishnan DO [address] [facility] [place] [address] PCP - General Family Medicine 06/07/21 documented as of this encounter
--- OUTSIDE RECORDS SUMMARY | 2025-07-07 07:31 | XMS_ITS | Clinical Summary ---
Author Organization [facility] Address [address] [place] [address] Care Team Providers Care Open Shank Coverer Name Role Phone Ian Krishnan DO Primary Care Provi kal Allergies Active Allergy Reactions Criticality Noted Date Comments Poison Jaclyn Extract Unknown 05/30/2023 Medications * This document contains information received from the source organization and may not represent a complete record from that organization. hydrOXYzine HCl (ATARAX) 10 MG tabletIndicatio ns:Generalized anxiety disorder TAKE 1 TABLET (10 MG TOTAL) BY MOUTH NIGHTLY NEEDED FOR ANXIETY (INSOMNIA). 30 tablet 10/30/2023 Active lisinopril (PRINIVIL,ZESTR IL) 20 MG tabletIndicatio ns:Hypertension , essential TAKE 1 TABLET BY MOUTH EVERY DAY 30 tablet 5 08/29/2024 Active busPIRone (BUSPAR) 15 MG tablet TAKE 1 TABLET BY MOUTH 2 TIMES DAILY. 60 tablet 01/30/2025 Active fluvoxaMINE (LUVOX) 100 MG tablet TAKE 1.5 TABLETS BY MOUTH 2 TIMES DAILY. 270 tablet 1 04/21/2025 Active ARIPiprazole (ABILIFY) 5 MG tablet TAKE 1 TABLET (5 MG TOTAL) BY MOUTH DAILY. 90 tablet 1 04/21/2025 Active Active Problems Problem Noted Date Diagnosed Date Hypertension, essential 07/19/2021 Tourette's 11/18/2015 Attention deficit hyperactiv ity disorder (ADHD), combined type 11/05/2015 Generalized anxiety disorder 11/05/2015 OCD (obsessive compulsive disorder) 06/19/2014 Resolved Problems Problem Noted Date Diagnosed Date Resolved Date DMDD (disruptive mood dysregulation disorder) 05/16/20 16 07/26/2022 Oppositional defiant disorder 11/05/2015 06/07/2021 Encounters Date Type Department Care Team Description 04/20/2025 Refill Psychiatry [facility] [address] [facility] [address] [facility] [address] Theresa Moore, PMHNP Med Change Request 04/19/2025 Refill Psychiatry [facility] [address] [facility] [address] [place] [phone] Theresa Moore, PMHNP Med Change Request from Last 3 Months Immunizations Immunization Administration Dates Next Due FLULAVAL QUADRIVALENT, 3 YEARS AND ABOVE, IM INFLUENZA QUADRIVALENT, PF 3 YEARS AND ABOVE ,05/10/2014 Influenza Split 05/31/2005 Influenza, split virus,triva lent, PF, 6 months of age and above, for IM use 05/10/2013 Td 12/08/2019 Family History Medical History Relation Comments Hypertension Father No Known Problems Mother Anxiety disorder Paternal Grandmother Hypertension Paternal Grandmother ADHD Paternal Uncle Relation Status Comments Father Mother Paternal Grandmother Paternal Uncle Social History Tobacco Use Types Packs/Day Years Used Date Smoking Tobacco: Every Day Cigarettes 0.3 5 Smokeless Tobacco: Former Snuff Tobacco Cessation:Ready to Q uit: Not Asked; Counseling Given: Not Answered Alcohol Use Standard Drinks/Week Comments Yes 0 (1 standard drink = 0.6 oz pur e alcohol) occasionally PHQ-2 Answer Date Recorded PHQ-2 Total Score 0 01/13/2021 Sex and Gender Information Value Date Recorded Sex Assigned at Not on file 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 Gender Identity Not on file Sexual Orientation Not on file 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 Not on file Not on file Not on file Last Filed Vital Signs Vital Sign Reading Time Taken Comments Blood Pressure 142/92 02/27/2024 3:00 PM CDT Pulse 103 02/27/2024 3:00 PM CDT Temperature 36.9 C (98.4 F) 03/08/2021 10:22 AM CDT Respiratory Rate 16 01/17/2022 8:05 AM CDT Oxygen Saturation 95% 12/09/2019 8:07 AM CDT Inhaled Oxygen Concentration - - Weight 89.4 kg (197 lb) 02/27/2024 3:00 PM CDT Height 172.7 cm (5' 8 ) 12/27/2023 2:01 PM CDT Body Mass Index 29.95 12/27/2023 2:01 PM CDT Plan of Treatment Health Maintenance Due Date Last Done Comments Pneumococcal Vaccine (1 of 2 - PCV) 2018 INFLUENZA VACCINE 03/07/2025 07/15/2022, (Declined), 05/30/2020, Additional history exists ADULT TETANUS VACCINE (1) 12/07/2029 12/08/2019 Meningococcal ACWY Aged Out No longer eligible based on patient's age to complete this topic Meningococcal B Aged Out No longer el igible based on patient's age to complete this topic Insurance [facility] [employer] Care Teams Open Shank Coverer Relationship Specialty Start Date End Date Ian Krishnan DO [facility] [place] [address] PCP - General Family Medicine 06/07/21
--- OUTSIDE RECORDS SUMMARY | 2025-07-07 07:31 | XMS_ITS | Encounter Summary ---
Author Organization [facility] Address 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 SUBJECTIVE: 1-year-old white male with a sore throat. He has had a little stomachache as well. No cough or congestion. He has been on Triaminic already. OBJECTIVE: Vitals are normal. Does have some exudate on the right tonsil. Neck is supple. No adenopathy. Lungs are clear. Abdomen is soft. Lab: Strep is negative. ASSESSMENT: 1. Pharyngitis. PLAN: 1. Give Augmentin 600/5, 1 teaspoon b.i.d. 2. Fluids, Tylenol and rest. Arian Peters M.D. /[facility] documented in this encounter Plan of Treatment Not on file documented as of this encounter Visit Diagnoses Not on filedocumented in this encounter Care Teams Ply Bander Relationship Specialty Start Date End Date Ian Krishnan DO [facility] [place] [address] PCP - General Family Medicine 06/07/21 documented as of this encounter
--- OUTSIDE RECORDS SUMMARY | 2025-07-07 07:31 | XMS_ITS | Encounter Summary ---
Author Organization [facility] Address [address] [place] [address] Care Team Providers Care Geriatric Social Worker Name Role Phone Ian Krishnan DO Primary Care Provi kal Encounter Details Date Type Department Care Team (Latest Contact Info) Description 10/10/2014 Scanned Document EXTERNAL Scan, Clinical [address] [facility] [place] [address] Social History Tobacco Use Types Packs/Day Years Used Date Smoking Tobacco: Never Smokeless Tobacco: Never Alcohol Use Standard Drinks/Week Comments No 0 (1 standard drink = 0.6 oz pur e alcohol) Sex and Gender Information Value Date Recorded Sex Assigned at Not on file Legal Sex Male 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
[2025-07-07 07:33] LABS: Albumin Level 4.7 g/dl (3.5-5.0); Chloride 98 mmol/L (98-107); Potassium 4.1 mmoL/L (3.5-5.1); Sodium 140 mmol/L (136-145)
[2025-07-07 07:35] LABS: Alanine Aminotransferase 33 U/L (12-78); Albumin/Globulin Ratio 1.2 (1.1-1.8); Alkaline Phosphatase 80 U/L (38-126); Anion Gap 20.1 mEq/L (5-15); Aspartate Amino Transferase 29 U/L (17-59); Bilirubin,Total 0.8 mg/dl (0.2-1.3); Blood Urea Nitrogen 16 mg/dl (9-20); Carbon Dioxide 26 mmol/L (22.0-30.0); Creatinine Clearance Estimated 144 mL/min (50-200); Creatinine,Serum 1.10 mg/dl (0.66-1.25); Estimated Glomerular Filt Rate 81 ml/min (>60); GFR (African American) 98 ML/MIN (>60); Globulin 4.0 g/dL (1.3-3.2); Total Protein,Serum 8.7 g/dl (6.3-8.2)
[2025-07-07 07:36] LABS: Calcium 9.5 mg/dl (8.4-10.2); Glucose 96 mg/dl (74-100); Lipase 40 U/L (23-300)
[2025-07-07] MEDS: SODIUM CHLORIDE 0.9% 10ML SYR (RAD ONLY) 10 ML IV (07:51)
[2025-07-07] MEDS: IOPAMIDOL-370 (76%);100ML BOTTLE 75 ML IV (07:51)
[2025-07-07 08:00] VITALS: BP 142/91; PULSE 82; RESP 16; O2SAT 98
[2025-07-07 08:17] LABS: Microscopic, Urine URINE MICROSCOPIC (MICROSCOPIC)
[2025-07-07 08:29] LABS: Hepatitis C Ab Qual. W/ RFX NEGATIVE (Negative)
[2025-07-07 08:30] LABS: Bilirubin,Urine Negative (Negative); Color,Urine YELLOW (Yellow); Glucose,Urine (UA) Negative (Negative); Ketones,Urine Negative (Negative); Leukocyte Esterase,Urine Negative (Negative); PH,Urine 6.5 (5.0-8.5); Protein,Urine Negative (Negative); Specific Gravity, Urine <= 1.005 (1.005-1.030); Urobilinogen,Urine 0.2 EU/dl (0.2)
--- NOTE | 2025-07-07 09:01 | PC.NURSE ---
Dr Patterson wanted Dr Cohw called for a follow up appt. After speaking with Dr Geraldo ochoa, pt has an appt for Aug.14 at 10 AM
[2025-07-07 09:10] VITALS: BP 122/92; PULSE 83; RESP 16; TEMP 36.7; O2SAT 99
[2025-07-07 09:19] LABS: Bacteria,Urine Trace /lpf; WBC,Urine Occasional #/hpf (0-3)
--- NOTE | 2025-07-07 13:44 | PC.NURSE ---
resent the pts meds to clinic pharmacy due to them missing PRN directions
== END 2025-07-07 09:11 | disposition home or self-care (01) ==
PROVIDERS: Emergency Provider Student in an Organized Health Care Education/Training Program
DX: K57.32 Diverticulitis of large intestine without perforation or abscess without bleeding (principal); R10.31 Right lower quadrant pain; D72.829 Elevated white blood cell count, unspecified; F17.210 Nicotine dependence, cigarettes, uncomplicated
CPT/HCPCS: 74177; 80053; 81001; 83605; 83690; 85025; 86803; 87389; 96361; 96374; 99284; J1885; J7120; Q9967